=== PATIENT | female | born 1995 | race Caucasian/White ===

== ENCOUNTER 2024-10-01 09:06 | Inpatient (IN) | payer BC ==
[2024-10-01] MEDS ORDERED: Promethazine HCl 25 MG/ML VIAL IM PRN ×2 (10:04→23:22)
[2024-10-01] MEDS ORDERED: Misoprostol 200 MCG TAB PR PRN (10:04)
[2024-10-01] MEDS ORDERED: Methylergonovine 0.2 MG/ML VIAL IM PRN (10:04)
[2024-10-01] MEDS ORDERED: Lactated Ringer's 1,000 ML IV PRN (10:04)
[2024-10-01] MEDS ORDERED: Lidocaine 1% (PF) 30 ML VIAL SC PRN (10:04)
[2024-10-01] MEDS ORDERED: Misoprostol 100 MCG TAB VAG PRN (10:04)
[2024-10-01] MEDS ORDERED: fentaNYL 50 mcg/mL 1 mL Vial SLOW IVP PRN (10:04)
[2024-10-01] MEDS ORDERED: hydrALAZINE 20 MG/ML VIAL SLOW IVP PRN (10:04)
[2024-10-01] MEDS ORDERED: Ibuprofen 800 MG TAB PO PRN (10:04)
[2024-10-01] MEDS ORDERED: Ondansetron PF 4 MG/2 ML Vial IVP PRN ×2 (10:04→23:22)
[2024-10-01] MEDS ORDERED: HYDROcodone/Acetaminophen 5/325 mg Tablet PO PRN ×2 (10:04)
[2024-10-01] MEDS ORDERED: Oxytocin 30 units/NS 500 ML 500 ML IV SCH (10:15)
[2024-10-01 12:57] LABS: Hematocrit 36.4 % (34.9-44.5); Hemoglobin 12.1 g/dL (12.0-15.5); Mean Corpuscular HGB CONC 33.2 g/dL (32.0-36.0); Mean Corpuscular Hemoglobin 31.3 pg (27.0-33.0); Mean Corpuscular Volume 94.3 fL (81.6-98.3); Mean Platelet Volume 11.3 fL (7.4-10.4); Platelet Count 257 10x3/uL (150-450); RBC Distribution Width 12.9 % (11.5-14.5); Red Blood Cell (RBC) Count 3.86 10x6/uL (3.90-5.03)
[2024-10-01 13:39] VITALS: BMI 32.6
[2024-10-01 18:24] LABS: HBsAg Index 0.15 S/CO (0-0.99); Hep B Surf Ag - L&D Non-Reactive S/CO (NonReactive)
[2024-10-01 18:28] LABS: Syphilis Antibody Nonreactive (Nonreactive); Syphilis Antibody Index 0.03 S/CO (<1.00 Non-Reactive)
[2024-10-01] MEDS: fentaNYL/Ropivacaine Epidural 100 ML ONE (22:53)
[2024-10-01] MEDS ORDERED: diphenhydrAMINE 50 MG/ML VIAL IVP PRN (23:22)
[2024-10-01] MEDS ORDERED: Naloxone HCl 0.4 mg/ml Vial IVP PRN ×2 (23:22)
[2024-10-01] MEDS ORDERED: ePHEDrine Sulfate 50 MG/10 ML VIAL SLOW IVP PRN (23:22)
[2024-10-01] MEDS ORDERED: Moisturizing Cream (Eucerin) 113 GM JAR TOP PRN (23:22)
[2024-10-01] MEDS ORDERED: Lactated Ringer's 500 ML IV PRN (23:22)
[2024-10-01] MEDS ORDERED: Communication Order-Pharmacy FS SCH (23:30)
[2024-10-02] MEDS ORDERED: Oxytocin 30 units/NS 500 ML 500 ML IV SCH (04:00)
[2024-10-02] MEDS: fentaNYL 2 mcg/Ropivacaine 0.2% Epidural 100 ML CADD EPIDURAL SCH (09:20)
[2024-10-02] MEDS: Ampicillin 2 GM in Sodium Chloride 0.9% 100 ML IVPB SCH (13:13)
[2024-10-02] MEDS: Gentamicin Sulfate 300 MG in Sodium Chloride 0.9% 100 ML IVPB SCH (14:09)
[2024-10-02] MEDS: Acetaminophen 325 MG TAB PO PRN (14:44)
[2024-10-02 15:52] LABS: Analyzer IN Cardio CS NICU; RapidComm Collect By cbn
[2024-10-02 15:53] LABS: Analyzer IN Cardio CS NICU; Critical Notified Whom: light cnm; RapidComm Collect By cbn
[2024-10-02] MEDS: Tranexamic Acid 1,000 MG/10 ML VIAL ONE (18:14)
[2024-10-02] MEDS: Misoprostol 200 MCG TAB ONE (18:14)
[2024-10-02] MEDS: Carboprost 250 MCG/ML AMP ONE (18:14)
[2024-10-02] MEDS: Methylergonovine 0.2 MG/ML VIAL ONE (18:14)
[2024-10-02] MEDS ORDERED: Benzocaine-Menthol 82.5 ML CAN TOP PRN (19:40)
[2024-10-02] MEDS ORDERED: Ibuprofen 800 MG TAB PO PRN (19:40)
[2024-10-02] MEDS ORDERED: Misoprostol 200 MCG TAB VAG PRN (19:55)
[2024-10-02] MEDS ORDERED: HYDROcodone/Acetaminophen 5/325 mg Tablet PO PRN ×2 (19:55)
[2024-10-02] MEDS ORDERED: Milk Of Magnesia 30 ML UDCUP PO PRN (19:55)
[2024-10-02] MEDS ORDERED: hydrALAZINE 20 MG/ML VIAL SLOW IVP PRN (19:55)
[2024-10-02] MEDS ORDERED: Bisacodyl 10 MG SUPP PR PRN (19:55)
[2024-10-02] MEDS: Witch Hazel 100 PAD JAR TOP PRN (20:32)
[2024-10-02] MEDS: Benzocaine-Menthol 82.5 ML CAN TOP PRN (20:33)
[2024-10-02] MEDS: Ibuprofen 800 MG TAB PO SCH (20:43)
[2024-10-02] MEDS: Docusate 100 MG CAP PO SCH (20:43)
[2024-10-03] MEDS: Boostrix 0.5 ML (Tdap) VIAL (>/=7 yrs of age) IM ONE (07:14)
[2024-10-03] MEDS: Ferrous Sulfate 325 MG TAB PO SCH (07:14)
[2024-10-03] MEDS: Prenatal Vitamin 1 TAB PO SCH (08:23)
[2024-10-04 10:38] VITALS: BP 116/70; TEMP 98.2
[2027-10-01] MEDS ORDERED: Bupivacaine 0.25% HCL 30 ML VIAL ONE (08:00)
== END 2024-10-04 12:31 | disposition home or self-care (01) | DRG 807 ==
LOC: CSHLD/OP 09:06 → CSHLD 13:37 → CSHPP 10-02 18:05
PROVIDERS: ADMIT Family Medicine; ATTEND Family Medicine
PROC: 10E0XZZ Delivery of Products of Conception, External Approach (ICD-10-PCS; principal; 2024-10-02)
PROC: 0KQM0ZZ Repair Perineum Muscle, Open Approach (ICD-10-PCS; 2024-10-02)
DX: O42.02 Full-term premature rupture of membranes, onset of labor within 24 hours of rupture (principal); Z37.0 Single live birth; Z3A.39 39 weeks gestation of pregnancy; O26.893 Other specified pregnancy related conditions, third trimester; Z67.41 Type O blood, Rh negative; O76 Abnormality in fetal heart rate and rhythm complicating labor and delivery; O70.1 Second degree perineal laceration during delivery
CPT/HCPCS: 36415; 51702; 82805; 85027; 86780; 86850; 86870; 86900; 86901; 87340; 99285; J0290; J0665; J1580